=== PATIENT | female | born 1935 | race Native Hawaiian/Other Pacific Islander ===

== ENCOUNTER 2017-12-27 12:15 | Outpatient (CLI) | payer OTHER ==
[~2017-12-27 12:15] MED LIST: ACET5TAB36 PO; ACYCLOVIR800 MG PO; ASTEPRO0.15 %; CEFD300C2 PO; CENTRUM SILVER ULTRA PO; DICL1GEL2 TOP; DOCU100C10 PO; DOXYCYCL HYC100 MG PO; GABA100C2 PO; IPRASOL5 IN; LEVO0.1T6 PO; LISI5TAB10 PO; LORTAB1 TAB PO; LUMIGAN0.01 % OP; METROGEL1 % EX; MIRALAX3350 N1 PO; MUPIROCIN21 EX; ONDA4TAB3 PO; RANI150T78 PO; SIMV20TA2 PO; TRAM50TA PO; UNITH DIRECT75 MCG PO; VIT E COMPLX400 UNIT OR; XOPENEX HFA IN; ZANTAC 75 PO
[2017-12-27 13:12] LABS: PLATELET COUNT 160 K/uL (152-353)
[2017-12-27 13:33] LABS: POTASSIUM 3.6 mmol/L (3.6-5.2)
== END 2017-12-27 22:13 | disposition home or self-care (01) ==
LOC: LABW 12:15
PROVIDERS: Family Medicine
DX: I10 Essential (primary) hypertension (principal); E03.9 Hypothyroidism, unspecified; E55.9 Vitamin D deficiency, unspecified; K21.9 Gastro-esophageal reflux disease without esophagitis; G62.9 Polyneuropathy, unspecified; M19.90 Unspecified osteoarthritis, unspecified site; E11.9 Type 2 diabetes mellitus without complications
CPT/HCPCS: 36415; 80053; 80061; 81000; 82306; 82607; 83036; 83735; 84439; 84443; 84550; 85027

== ENCOUNTER 2018-04-18 11:31 | Outpatient (CLI) | payer OTHER | END 2018-04-18 19:21 | disposition home or self-care (01) | LOC: LABW 11:31 | DX: R68.89 Other general symptoms and signs (principal); J20.9 Acute bronchitis, unspecified ==

== ENCOUNTER 2018-05-23 16:03 | Inpatient (IN) | payer OTHER ==
[~2018-05-23] VITALS: Ht 165.1 cm; Wt 70.9 kg
[2018-05-23] MEDS ORDERED: UNITH DIRECT75 MCG (16:43)
[2018-05-23] MEDS ORDERED: VITAMIN C1000 MG PO (16:44)
[2018-05-23] MEDS ORDERED: ALPH-E-MIXED400 UNIT (16:45)
[2018-05-23 18:16] LABS: PLATELET COUNT 152 K/uL (152-353)
[2018-05-23 18:33] LABS: POTASSIUM 3.4 mmol/L (3.6-5.2)
[2018-05-23 18:43] VITALS: BP 144/84; TEMP 99; Ht 165.1 cm; Wt 70.9 kg
[2018-05-23 20:00] VITALS: BP 135/89; TEMP 98.2
[2018-05-24] VITALS: BP 142/85; TEMP 98.3
[2018-05-24 04:00] VITALS: BP 128/74; TEMP 98.8
[2018-05-24 08:00] VITALS: BP 131/79; TEMP 98.1
[2018-05-24 12:00] VITALS: BP 137/78; TEMP 99.1
[2018-05-24 16:12] VITALS: BP 111/63; TEMP 98.8
[2018-05-24 20:00] VITALS: BP 114/66; TEMP 98.3
[2018-05-25 00:16] VITALS: BP 128/69; TEMP 97.7
[2018-05-25 03:57] VITALS: BP 150/91; TEMP 97.6
[2018-05-25 08:00] VITALS: BP 146/89; TEMP 98.1
[2018-05-25 12:00] VITALS: BP 125/77; TEMP 98
[2018-05-25 16:18] VITALS: BP 123/76; TEMP 98.2
[2018-05-25 20:00] VITALS: BP 145/85; TEMP 97.8
[2018-05-26] VITALS: BP 135/79; TEMP 97.7
[2018-05-26 04:00] VITALS: BP 137/80; TEMP 97.8
[2018-05-26 08:05] VITALS: BP 146/83; TEMP 98.4
[2018-05-26 12:17] VITALS: BP 134/80; TEMP 98
[2018-05-26 16:03] VITALS: BP 151/67; TEMP 99.6
[2018-05-26 20:00] VITALS: BP 145/85; TEMP 98.9
[2018-05-27 00:08] VITALS: BP 147/86; TEMP 98.2
[2018-05-27 04:00] VITALS: BP 124/75; TEMP 98.8
[2018-05-27 08:04] VITALS: BP 144/87; TEMP 98
[2018-05-27 12:06] VITALS: BP 156/92; TEMP 98.4
== END 2018-05-27 12:50 | disposition home or self-care (01) | DRG 194 ==
LOC: MED/SURG 16:03
PROVIDERS: ADMIT Family Medicine
DX: J10.1 Influenza due to other identified influenza virus with other respiratory manifestations (principal); J44.0 Chronic obstructive pulmonary disease with (acute) lower respiratory infection; N39.0 Urinary tract infection, site not specified; E86.0 Dehydration; I10 Essential (primary) hypertension; E78.49 Other hyperlipidemia; E11.9 Type 2 diabetes mellitus without complications; B96.1 Klebsiella pneumoniae [K. pneumoniae] as the cause of diseases classified elsewhere; K59.09 Other constipation
CPT/HCPCS: 80053; 81000; 85027; 87077; 87086; 87088; 87186; 87502; 94640; 94664; 94760; J0132; J0456; J0696